=== PATIENT | male | born 1980 | race African-American/Black ===

== ENCOUNTER 2018-03-10 11:09 | Outpatient (RCR) | payer OTHER, SELFPAY ==
--- NOTE | 2018-03-10 12:30 | HP.PTEVAL_ITS ---
Patient's Visit Information ROSIBEL ANTUNEZ is a 37 year old M referred to Physical Therapy by MONCHO PORTILLO with a diagnosis of IMPINGEMENT SYNDROME OF RIGHT SHOULDER. Date of Evaluation: 03/10/18 Physical Therapist: Joe Grimm PT, - Visit Plan Frequency: 1x/Week Duration: 4 Weeks Plan: RTC/SCAPULAR EX'S ,POSTURAL EX'S MODALITIES FOR PAIN RELEIVE,THORACIC EX' - Subjective Subjective: This 37 y/o male presents to physical therapy with imingement right shoulder. Patient has had right shoulder pain for 6month . Patient seen DR Portillo recommended PT and provided celebrex for pain releive.Location pain AC joint described dull /throbbing . Patient pain affect ability to raises arm above 90 degrees for lifting ,housework and working out. Denies parathesia/ tingling.Patient pain affects sleeping . Patient affects QOL and job demands .Patient had x-rays . VOCATION: [employer]. SOCAIL: single - Pain Right Shoulder Pain Intensity (Out of 10): 4 Pain Intensity Range: 10 - Objective POSTURE: mild foward posture ,rounded shoulders head foward. PALAPTION: tender AC. NEURO: intact. AROM: shoulder flexion 150 degrees,abduction 150 degrees, ER 90 degrees ,IR 75 degrees. overpressure mild pain. FUNCTION TEST: behind back IR ,behind back L1. MMT: supraspinatous 4-/5 mild pain,infraspinatous 4/5, subscapularis 4/5,deltoid 4-/5 pain with lateral deltoid. CAPSULAR RESTRICTION : WFL. SCAPULAR-HUMERAL RYTHUM: one :one ratio - Special Tests R Shoulder External Rotation Lag Test - RC Tear: Negative R Shoulder Supine Impingement Test - RC Tear: Negative R Shoulder Lift Off Test - Subscapular Tear: Negative R Shoulder Drop Sign - IS Test: Negative R Shoulder Empty Can - SS: Positive R Shoulder Neer - Impingement: Positive R Shoulder Eli Ronan - Impingement: Positive - Goals Goal 1:: Independant with HEP Goal Time Frame: 2-4 Weeks Goal 2:: Patient to be Independant with posture for ADL'S Goal Time Frame: 2-4 Weeks Goal 3:: Decrease right shoulder pain by 60% or greater to improve function and Job demands and housework tasks/working out . Goal Time Frame: 2-4 Weeks Goal 4:: Patient increase strength RTC 5/5 AND DELTOID 4/5 to improve function and ADL'S Goal Time Frame: 2-4 Weeks Goal 5:: Patient be able to perform ADL'S and housework tasks /job demands with no limitations Goal Time Frame: 2-4 Weeks - Rehabilitation Potential Physical Therapy Diagnosis: This patient appears to have imingement right shoulder with tendonesis with apin with motion end range ,pain with suprasoinatous impairs ADL'S and housework tasks and activitie sabestrell[employer] v90 dgtrees and working out Rehabilitation Potential: Good - Anticipated Interventions Patient/Client Instruction: Educate patient on: Condition, Plan of Care For the Purpose of:: To decrease pain, To increase ROM, To improve muscle performance and motor function, To improve ability to perform ADL's, To increase tolerance to activity/condition/position, To improve performance and independence with ADL's, To improve ability of physical actions for home/ community/work/leisure, To improve health of tissue, To decrease soft tissue restriction, To increase flexibility/ROM, To improve ability to perform tasks related to life management Therapeutic Exercise to Include: Strength training, Body mechanics, Postural training, Flexibilty training, Scapular Strength/Stabilization Comment: RTC For the Purpose of:: To decrease pain, To improve muscle performance and motor function, To improve ability to perform ADL's, To increase tolerance to activity /condition/position, To improve ability of physical actions for home/community/ work/leisure, To improve health of tissue, To decrease soft tissue restriction, To increase flexibility/ROM, To improve ability to perform tasks related to life management IF ES: Yes Other electric stimulation: Yes Cryotherapy (ice pack, ice massage): Yes Thermo therapy (hot pack): Yes Ultrasound (thermal/non thermal): Yes For the Purpose of:: To decrease pain, To increase ROM, To improve muscle performance and motor function, To increase tolerance to activity/condition/ position, To improve health of tissue, To decrease soft tissue restriction, To increase flexibility/ROM Thank you for the opportunity to evaluate your patient. For Medicare and Medicare HMO plans, please review the plan of care and approve it. It will need to be FAXED BACK to us at [phone] for Medicare purposes. Please let me know if there are questions or concerns regarding this plan of care. Physician Signature: Date:
--- NOTE | 2018-06-16 15:20 | HP.PTDCNRP_ITS ---
HP - Discharge Summary (1) - Patient Information ROSIBEL ANTUNEZ was seen in my office for initial evaluation on 03/10/18. The following Plan of Care was established for this patient: Initial Frequency: 1x/Week Initial Duration: 4 Weeks - Anticipated Interventions Patient/Client Instruction: Educate patient on: Condition, Plan of Care For the Purpose of:: To decrease pain, To increase ROM, To improve muscle perfor sakina and motor function, To improve ability to perform ADL's, To increase tolerance to activity/condition/position, To improve performance and independence with ADL's, To improve ability of physical actions for home/community/work/leisure, To improve health of tissue, To decrease soft tissue restriction, To increase flexibility/ROM, To improve ability to perform tasks related to life management Therapeutic Exercise to Include: Strength training, Body mechanics, Postural training, Flexibilty training, Scapular Strength/Stabilization For the Purpose of:: To decrease pain, To improve muscle performance and motor function, To improve ability to perform ADL's, To increase tolerance to activity/condition/position, To improve ability of physical actions for home/community/work/leisure, To improve health of tissue, To decrease soft tissue restriction, To increase flexibility/ROM, To improve ability to perform tasks related to life management IF ES: Yes Other electric stimulation: Yes Cryotherapy (ice pack, ice massage): Yes Thermo therapy (hot pack): Yes Ultrasound (thermal/non thermal): Yes For the Purpose of:: To decrease pain, To increase ROM, To improve muscle performance and motor function, To increase tolerance to activity/condition/position, To improve health of tissue, To decrease soft tissue restriction, To increase flexibility/ROM This patient was last seen in our office . Pertinent comments regarding their Physical therapy will appear below: Patient seen for PT for intial Evaluation for imimgement of shoulder for HEP. At this point I will be discontinuing this patient from physical therapy. I would be happy to see this patient again in the future if found appropriate by the physician. Thank you! Joe Grimm, PT,
== END 2018-03-10 19:00 | disposition home or self-care (01) ==
LOC: PT 11:09
DX: M75.41 Impingement syndrome of right shoulder (principal)
CPT/HCPCS: 97014; 97110; 97161; G0283